=== PATIENT | female | born 1980 | race Caucasian/White ===

== ENCOUNTER 2019-11-12 09:59 | Emergency (ER) | payer BC, SELFPAY ==
--- NOTE | 2019-11-12 10:08 | ED.LOWEXIN ---
HPI - Extremity Injury (Lower) General Chief Complaint: Extremity Injury, Lower Stated Complaint: INJURED L KNEE Time Seen by Provider: 11/12/19 10:16 Source: patient and RN notes reviewed Mode of arrival: ambulatory Limitations: no limitations History of Present Illness HPI Narrative: 38-year-old female presents concern for left knee pain. Reports she recently started running and was dealing with porter splints. She reports 2 weeks ago she began having left knee pain. She reports some pain at rest, pain with weightbearing. Denies any intervention. She denies any injury, trauma. MD complaint: knee injury Related Data Home Medications Medication Instructions Recorded Confirmed Probiotic 11/12/19 multivitamin 11/12/19 Allergies Allergy/AdvReac Type Severity Reaction Status Date / Time No Known Allergies Allergy Verified 11/12/19 10:23 Review of Systems Review of Systems: Narrative: CONSTITUTIONAL: Denies malaise, chills, sweats, or fever. RESPIRATORY: Denies dyspnea. SKIN: Mild left anterior knee swelling MUSCULOSKELETAL: Reports left knee pain NEUROLOGIC: Denies numbness, weakness All systems reviewed & are unremarkable except as noted in HPI and below PMFSH Surgical History Surgical History (Updated 10/18/19 @ 08:37 by Hawa Bowman, [facility]) History of bilateral salpingectomy History of exploratory laparotomy Previous section Family History Family History (Updated 03/18/18 @ 15:48 by DOCTOR UNKNOWN) Mother Hypertension Patient's mother is in good health Social History Social History Smoking status: Never smoker Second hand tobacco smoke exposure: No Alcohol intake: current Comments At time of signature, agree with nursing past medical, surgical, social and family history. There is no relevant family history pertinent to the presenting complaint Exam Narrative: Exam Narrative: GENERAL: Well-appearing, well-nourished, and in no acute distress. HEAD: Normocephalic, atraumatic. EYES: PERRLA, conjunctivae clear NECK: Supple. CHEST: Speaks in full sentences. No respiratory distress. HEART: Regular rate and rhythm. Normal and equal peripheral pulses. EXTREMITIES: Left knee has normal strength and sensation, mild anterior/lateral edema, normal range of motion. 5/5 strength with knee flexion and extension. Normal sensation with sensitivity to light touch and pain. No open wounds, no skin tenting, no devitalized tissue or atrophy, no trophic changes, no ecchymosis, no obvious deformity, alignment normal, no point tenderness, nearby joints and structures intact. Distal pulses palpable and equal bilaterally, skin warm, dry, pink. Capillary refill less than 3 seconds. Anterior drawer test and Dolores test negative SKIN: Warm, dry, no rash. NEURO: Alert and oriented x3. PSYCH: Normal mood and affect Course Course Emergency Course: Patient is aware of diagnosis, understands and agrees to treatment plan. Anticipatory guidance given. Patient agrees to follow-up as directed and is aware of reasons to seek care at the emergency department. Portions of this record may have been created with voice recognition software Vital Signs Vital signs: Vital Signs Temperature 98.4 F 11/12/19 10:18 Pulse Rate 71 11/12/19 10:18 Respiratory Rate 16 11/12/19 10:18 Blood Pressure 120/90 11/12/19 10:18 Pulse Oximetry 99 11/12/19 10:18 Temperature 98.4 F 11/12/19 10:18 Pulse Rate 71 11/12/19 10:18 Respiratory Rate 16 11/12/19 10:18 Blood Pressure 120/90 11/12/19 10:18 Pulse Oximetry 99 11/12/19 10:18 Reviewed. MDM - Extremity Injury (Lower) MDM Narrative Medical decision making narrative: Patients pain is consistent with musculoskeletal etiology. No signs of neurological or vascular compromise on exam. Compartments and tissues are soft without signs of compartment syndrome. Pain is felt appropriate for further evaluation on an outpatient basis. Critical Ca
[2019-11-12 10:18] VITALS: BP 120/90; PULSE 71; RESP 16; TEMP 36.9; O2SAT 99
== END 2019-11-12 10:58 | disposition home or self-care (01) ==
PROVIDERS: Emergency Provider Nurse Practitioner; PCP Family Medicine
DX: M25.562 Pain in left knee (principal)
CPT/HCPCS: 99213; G0463

== ENCOUNTER 2020-02-28 16:21 | Outpatient (CLI) | payer BC, SELFPAY ==
--- NOTE | ~2020-02-28 | US_ITS ---
EXAMINATION: US pelvic complete w TV EXAM DATE: 02/28/2020 17:09 INDICATION: Irregular periods. Cyst removal, tubal ligation. TECHNIQUE: Pelvic transabdominal and transvaginal sonogram was performed. There are multiple graysca le and Doppler images available for interpretation. Comparison is made to prior examination from 10/19. FINDINGS: Uterus measures 10.2 x 4.0 x 4.6 cm, and is morphologically normal. Endometrial stripe me asures 4 mm, within normal limits. There is no free pelvic fluid. Right adnexa: The ovary measures 1.8 x 0.8 x 1.8 cm and is morphologically normal. Previously seen ri ght ovarian cystic lesion no longer identified. Ovarian vascular flow confirmed. Left adnexa: The ovary measures 8.1 x 6.3 x 8.9 cm, most of this size taken up by anechoic cystic reg ion with several septations measuring 7.2 x 5.2 x 5.9. Differential diagnosis includes hydrosalpinx, hemorrhagic cyst, cystic ovarian neoplasm. Ovarian vascular flow confirmed. IMPRESSION: Mildly complex left adnexal cystic region, differential diagnosis including hydrosalpinx, hemorrhagic cyst, cystic ovarian neoplasm. Consider 6 week follow-up pelvic sonogram. Reviewed, dictated and finalized at location B. IMPRESSION: Mildly complex left adnexal cystic region, differential diagnosis i ncluding hydrosalpinx, hemorrhagic cyst, cystic ovarian neoplasm. Consider 6 we ek follow-up pelvic sonogram.
== END 2020-02-28 16:22 | disposition home or self-care (01) ==
PROVIDERS: PCP Family Medicine; Visit Provider Obstetrics & Gynecology
DX: N92.6 Irregular menstruation, unspecified (principal)
CPT/HCPCS: 76830; 76856

== ENCOUNTER 2020-02-29 14:40 | Outpatient (CLI) | payer BC, SELFPAY ==
[2020-03-03 02:55] LABS: CA-125 13 U/mL (<35)
== END 2020-02-29 14:41 | disposition home or self-care (01) ==
PROVIDERS: PCP Family Medicine; Visit Provider Obstetrics & Gynecology
DX: N94.9 Unspecified condition associated with female genital organs and menstrual cycle (principal)
CPT/HCPCS: 36415; 86304

== ENCOUNTER 2020-05-04 15:50 | Outpatient (CLI) | payer BC, SELFPAY ==
--- NOTE | ~2020-05-04 | US_ITS ---
EXAMINATION: US pelvic complete w TV DATE: 05/04/2020 16:36 INDICATION: Pelvic and perineal pain Comparison:Ultrasound dated 02/28/2020 TECHNIQUE: Multiple transabdominal and endovaginal sonographic images of the pelvis performed. FINDINGS: The uterus measures 10.5 x 5.2 x 4 cm. The endometrial complex measures 6 mm. The right ovary measures 4 x 2.7 x 2.3 cm and the left ovary measures 6.8 x 5.8 x 4.6 cm. There is a complicated cyst of the left ovary measuring 3.3 x 2.8 x 3.1 cm. There is a second cyst measuring 4.1 x 2.4 x 3.2 cm. There is no free fluid in the pelvis. There are no abnormal masses seen on either side. IMPRESSION: 1. Left ovarian cysts, largest measuring 4.1 cm maximum dimension. Second smaller cyst contains low-l evel internal echoes and internal septations, likely hemorrhagic. Reviewed, dictated and finalized at location A. IMPRESSION: 1. Left ovarian cysts, largest measuring 4.1 cm maximum dimension. Second small er cyst contains low-level internal echoes and internal septations, likely hemo rrhagic.
== END 2020-05-04 15:51 | disposition home or self-care (01) ==
LOC: ANHIMG 15:53
PROVIDERS: PCP Family Medicine; Visit Provider Obstetrics & Gynecology
DX: R10.2 Pelvic and perineal pain (principal); N83.202 Unspecified ovarian cyst, left side
CPT/HCPCS: 76830; 76856

== ENCOUNTER 2020-05-13 08:08 | Outpatient (CLI) | payer BC, SELFPAY ==
--- NOTE | ~2020-05-13 | MM_ITS ---
EXAMINATION: MM screening geovanny BI w dionne HISTORY: Screening mammogram TECHNIQUE: Craniocaudal and mediolateral oblique 3-D tomosynthesis images were obtained and synthetic 2-D images were generated. Rotated lateral cc view of right breast. CAD analysis was submitted and i nterpreted. COMPARISON: No prior mammogram is available for comparison at this institution. BREAST PARENCHYMAL COMPOSITION: The breasts are heterogeneously dense, which may obscure small masses . FINDINGS: There is no evidence of suspicious mass, calcification, or architectural distortion to sugg est malignancy in either breast. There has been no suspicious interval change. IMPRESSION: 1. No mammographic evidence of malignancy. 2. Recommend routine screening mammography in one year. BI-RADS Category 1: Negative Reviewed, dictated and finalized at location A.
== END 2020-05-13 08:09 | disposition home or self-care (01) ==
LOC: ANHIMG 08:12
PROVIDERS: PCP Family Medicine; Visit Provider Obstetrics & Gynecology
DX: Z12.31 Encounter for screening mammogram for malignant neoplasm of breast (principal)
CPT/HCPCS: 77063; 77067

== ENCOUNTER 2020-06-27 10:19 | Outpatient (CLI) | payer BC, SELFPAY | END 2020-06-27 10:20 | disposition home or self-care (01) | LOC: ANHSURGERY 10:23 | PROVIDERS: PCP Family Medicine; Visit Provider Obstetrics & Gynecology Gynecology | DX: N92.0 Excessive and frequent menstruation with regular cycle (principal); N94.9 Unspecified condition associated with female genital organs and menstrual cycle | CPT/HCPCS: 36415; 86850; 86900; 86901 ==

== ENCOUNTER 2020-07-03 00:36 | Outpatient (CLI) | payer BC, SELFPAY ==
[2020-07-03 16:30] LABS: SARS-CoV-2 RNA PCR Negative
== END 2020-07-03 00:37 | disposition home or self-care (01) ==
LOC: ANHCOVIDDT 00:36
PROVIDERS: PCP Family Medicine; Visit Provider Obstetrics & Gynecology
DX: Z01.812 Encounter for preprocedural laboratory examination (principal); Z20.828 Contact with and (suspected) exposure to other viral communicable diseases
CPT/HCPCS: 87635; C9803; U0003

== ENCOUNTER 2020-07-05 09:27 | Inpatient (IN) | payer BC, SELFPAY ==
[2020-06-20 15:49] VITALS: BMI 29.2
--- NOTE | 2020-07-04 08:39 | WPDANESEPPF ---
Anes - Initial Pre Proc Eval Procedure: Operation Date: 07/05/20 07:30 Proposed Procedures p Total Abdominal Hysterectomy, Bilateral Salpingectomy, Possible Unilateral Oophorectomy, Possible Bilateral Oophorectomy - Ayden Mejía MD Date/Time: 07/04/20 08:39 Surgeon: Ayden Mejía MD Pre Op Diagnosis: Pelvic Pain/ Ovarian Cyst/ Menorrhagia Patient Data Age: 39 Gender: F Height: 1.6 m Weight: 75 kg Allergies Allergy/AdvReac Type Severity Reaction Status Date / Time No Known Allergies Allergy Verified 07/05/20 06:17 Home Medications Medication Instructions Recorded Confirmed Type Probiotic 40 mg BYMOUTH DAILY 11/12/19 07/05/20 History multivitamin 500 mg BYMOUTH DAILY 11/12/19 07/05/20 History Patient hx anesthesia problems: post op nausea/vomiting Family hx anesthesia problems: none PMFSH Past Medical History Medical History Anxiety Surgical History Surgical History History of bilateral salpingectomy History of exploratory laparotomy Previous section Family History Family History Mother Hypertension Patient's mother is in good health Social History Social History Smoking status: Former smoker Tobacco type: cigarettes Second hand tobacco smoke exposure: No Smoking end date: 09/08/12 Alcohol intake: current Substance use: never Living arrangements: with family Gender identity (if verbalized by the patient): Female Sexual Orientation (if Verbalized by the Patient): Straight or Heterosexual Spiritual care concerns: No Anes - Eval Final PreProcedure Day of Procedure 07/04/20 08:39 Patient weight: overweight Heart: regular rate and rhythm Lungs: clear to auscultation and normal air movement Airway: Mallampati scale class III Neurological: alert and oriented Last oral intake: >/= 8 hours ASA classification: II Emergent: no Anesthetic plan: proceed Anesthesia type and monitoring: general ETT and standard monitoring Informed Consent: The patient's anesthetic plan and its attendant risks and benefits were discussed with the patient/family/POA. Questions were solicited and answers provided to the satisfaction of the patient/family/POA.
[2020-07-05] VITALS (25 sets, daily range): BP systolic 102–125; BP diastolic 54–71; PULSE 68–97; RESP 12–20; TEMP 36.3–37.6; O2SAT 96–100
--- NOTE | 2020-07-05 05:45 | PM.IMHP ---
H&P: HPI History of Present Illness Date/Time: 07/05/20 05:45 Chief complaint: Pelvic Pain/ Ovarian Cyst/ Menorrhagia Narrative: Carla Thomas is a 39 year old female Para 1 with chronic intermittent pelvic pain for over three years and has dealt with it. She has a long history of pelvic adhesive disease. She states has had increased pelvic pain for two years. She gets frequent pelvic pain prior to two years but has gradually gotten worse. Recent ultraound in March showed a 7cm left complex adnexal cyst. She had a Ca125 which was normal at 13. She was started on control for irregular bleeding and to see if cyst would resolve. The follow up ultrasound did show the cyst decrease to 4cm. She continues to get the pelvic pain on the control pills. She has had metorrhagia with spotting for over 9 months. Had normal pap smear in February. Had endometrial biopsy since the spotting did not completely resolve with control pills and the endometrial biopsy showed an endometrial polyp. She was given option of laparoscopic removal of persistent cyst and hysteroscopic removal of polyp. She is aware that ovarian adnexal cyst and endometrial polyps can reoccur. She states that she has had years of pelvic pain and does not feel the best on control pills and desires definitive treatment of the pelvic pain with her history of extensive pelvic adhesive disease and treatment of the methorrhagia. History significant for PID, prior partial salpingectomy prior to IVF. She had laparotomy for large hydrosalpinx in 2018. She has a frozen embryo and she and her are adamant about not wanting to proceed with any future IVF attempts. She has satisfied parity and desires hysterectomy. She is aware that with her history of adhesions that she could still experience pelvic pain even after a hysterectomy. She is fine with this and does not want to deal with the spotting or do any type of hormonal options for the bleeding. She was informed of recommendation to keep ovaries if possible but one or both ovaries may need to be removed if they are involved in the dense adhesive disease. Discussed risk and effects of surgical menopause at this age. Risk of future surgery on ovaries 5-8% if they remain. Review of Systems Review of Systems: All systems reviewed & are unremarkable except as noted in HPI and below Constitutional: Constitutional: Reports no additional constitutional complaints Eyes: Eyes: Reports no additional eye complaints Cardiovascular: Cardiovascular: Denies chest pain and Denies dyspnea Respiratory: Respiratory: Reports no additional respiratory complaints, Denies dyspnea and Reports other Gastrointestinal: Gastrointestinal: Denies abdominal pain Genitourinary: Genitourinary: Reports no additional female genitourinary complaints, Reports as per HPI, Denies vaginal discharge, Denies vaginal dryness, Denies vaginal odor and Denies vaginal pruritus Psychiatric: Psychiatric: Reports no additional psychiatric complaints Endocrine: Endocrine: Reports no additional endocrine complaints Hematologic/Lymphatic: Hematologic/Lymphatic: Reports no additional hematologic/lymphatic complaints PMFSH Past Medical History Medical History Anxiety Surgical History Surgical History History of bilateral salpingectomy History of exploratory laparotomy Previous section Family History Family History Mother Hypertension Patient's mother is in good health Social History Social History Smoking status: Former smoker Tobacco type: cigarettes Second hand tobacco smoke exposure: No Smoking end date: 09/08/12 Alcohol intake: current Substance use: never Living arrangements: with family Gender identity (if verbalized
[2020-07-05] MEDS: ACETAMINOPHEN 500 MG TABLET 1000 MG PO (06:27)
[2020-07-05] MEDS: LACTATED RINGERS 1,000 ML 30 ML IV CONT ×2 (06:27→11:58)
[2020-07-05 06:44] LABS: Hematocrit 40.3 % (37.0-47.0); Hemoglobin 13.6 g/dL (12.0-15.0); Mean Corpuscular HGB Conc 33.7 g/dl (32-36); Mean Corpuscular Hemoglobin 31.4 pg (26-34); Mean Corpuscular Volume 93.1 fl (80-100); Mean Platelet Volume 10.4 fl (7.4-10.4); Platelet Count Result 281 k/mm3 (150-375); Red Blood Count 4.33 M/mm3 (4.2-5.4); Red Cell Distribution Width 12.9 % (11.5-14.5); White Blood Count 7.2 K/mm3 (4.5-10.0)
[2020-07-05] MEDS: SCOPOLAMINE 1.5 MG PATCH TRANSDERM (07:05)
--- NOTE | 2020-07-05 07:21 | WPDHPUPDATE1 ---
History and Physical Update Update Date/Time: 07/05/20 07:21 History and Physical has been reviewed, including an updated exam of the patient. There are NO changes in the patient's condition. Risks, benefits, and alternatives have been discussed and questions answered. Patient agrees to proceed with procedure.
[2020-07-05] MEDS: ceFAZolin 2 GM/D5W 50 ML 2 GM/50 ML BAG IVPB (07:34)
[2020-07-05] MEDS: ceFAZolin SODIUM 1 GM VIAL IV PUSH (11:40)
[2020-07-05] MEDS: METHYLENE BLUE 0.5% INJ 10 ML AMPULE 20 ML IRRIGATION (11:49)
--- NOTE | 2020-07-05 11:52 | PM.OP ---
Procedure Note - Brief Procedure Note - Brief Date of procedure: 07/05/20 Pre-op diagnosis: Pelvic Pain/ Ovarian Cyst/ Menorrhagia Endometrial polyp Post-op diagnosis: same (Severe pelvic adhesive disease) Procedure performed: 1. Total abdominal hysterectomy with left oophorectomy. 2. Extensive lysis of adhesions. 3. Cystoscopy. Anesthesia: GETA Surgeon: Ayden Mejía MD Estimated blood loss (mL): 150 IV fluids (mL): 2,000 Urine output (mL): 100 Drains: No Packing: No Pathology: yes (uterus and cervix and right fallopian tube) Complications: No immediate complications Condition: stable Disposition: PACU Findings: Extensive adhesions of small intestine and periintestinal fat to mid lower abdominal wall. The left ovary densely adhered to left pelvic wall and back of uterus and distal colon. Right ovary with hemorrhagic cyst which ruptured during procedure and hemostasis obtained with suture. Right ovary adhesed to colon. Bilateral efflux of urine from both ureter orifi on cystoscope. Bladder mucosa intact normal appearing.
[2020-07-05] MEDS: fentaNYL CITRATE INJ (*CRX) 100 MCG/2 ML VIAL 25 MCG IV PUSH ×8 (12:13→13:08)
[2020-07-05] MEDS: DEXTROSE 5%/LACTATED RINGERS 1,000 ML 125 ML IV CONT (14:29)
[2020-07-05] MEDS: KETOROLAC 30 MG/ML VIAL (*BKC) IV PUSH (14:29)
--- NOTE | 2020-07-05 14:51 | ADMGEN ---
This patient, Carla Thomas, was admitted to OB 2nd Floor Room 289-00. Patient/family oriented to hospital policies and general routines including ID bracelet, bed and alarms, visiting hours, pain management, procedures, bathroom and other care routines, personal items, smoking policy, room service/diet, and visiting hours. Information on how to activate the Rapid Response Team has been discussed. Patient/Family are encouraged to report perceived risks to care and to ask questions if they do not understand what they are told or what they should do.
[2020-07-05] MEDS: FENTANYL 600MCG/NS30MLPCA(*CRX 600 MCG/30 ML PCA.VIAL IV CONT (15:21)
--- NOTE | 2020-07-05 18:34 | PC.NURSE ---
Patient used 70 mcg total of Fentanyl MANAGER WOMEN during shift.
[2020-07-06 05:04] VITALS: BP 109/64; PULSE 83; RESP 17; TEMP 37.3
[2020-07-06 05:21] VITALS: RESP 18; O2SAT 98
[2020-07-06] MEDS: DEXTROSE 5%/LACTATED RINGERS 1,000 ML 125 ML IV CONT (05:56)
--- NOTE | 2020-07-06 08:05 | PM.PROC ---
Procedure Note - Detailed Date of procedure: 07/06/20 Pre-op diagnosis: Pelvic Pain/ Ovarian Cyst/ Menorrhagia 4. Endometrial polyp Post-op diagnosis: same (Severe pelvic adhesive disease) Procedure performed: 1. Total abdominal hysterectomy with left oophorectomy 2. Extensive lysis of adhesions 3. Cystoscopy Description of procedure: After informed consent was obtained patient was taken to the operating room. She was placed in supine position general endotracheal anesthesia was administered she was prepped and draped in sterile fashion attention was turned to the abdomen a Pfannenstiel skin incision was made along her prior Pfannenstiel scar. The subcutaneous tissue was dissected down with cautery and sharp dissection. The fascia which was scarred was incised in the midline. The fascia was extended with coates scissors. The scarred muscle bellies were dissected with cautery from the fascia laterally. There is dense scar tissue at the mid fascia anteriorly this was carefully dissected with Metzenbaum scissors. The peritoneum was entered. The area was palpated and there was noted to be scar tissue of the cheryl intestinal fat and the intestine superior to this the scar tissue was lysed with Metzenbaum scissors. Once the tissue was released from the anterior abdominal wall then the superior rectus tissue was further dissected from the underlying fascia for adequate visualization. Attention was turned to the inferior fascia which the muscle bellies were dissected from the inferior fascia using Metzenbaum scissors and cautery. Or cauterize for visualization. The intestines were then packed up out of the pelvis with labs. Prior to doing this there were extensive adhesions on the left sidewall and the left adnexa to the intestines that had to be lysed before placing the intestines up out of the pelvis. To this point which took approximately 90 minute which most of this was lysis of adhesions of the abdominal wall adhesions and the intestinal he has ends to the back of the uterus and both ovaries to get adequate visualization. Once adhesions were lysed to place intestine up in pelvis with laparotomy sponges then [place] abdominal retractor was placed. Mild adhesions of the right ovary were lysed from cheryl intestinal fat. The round ligament on the right was suture ligated with 0 vicry. The anterior leaf of the broad ligament was dissected and the vesicouterine peritoneum was dissected from the lower uterine segment. The posterior leaf of broad ligament incised and the uterine ovarian ligmanent was cauterized with ligasure. The hemorrhagic cyst on the right ovary ruptured when lilian was retracting ovary and clot removed and hemostasis at site with figure of eight sutures of 0 vicryl. Hemostasis noted. The uterine vessels were skeletonized. The ascending uterine vessels cauterized with ligature. The attention was turned to the left adnexa and more lysis of adhesions of ovary from side wall and pericolic adhesions. The was a cyst on the left ovary that was entered and clear fluid seen. Attention was turned to the left side of uterus which the anterior left uterus was attached to side wall dense adhesions. The adhesions were lysed. The round ligament was suture ligated and cauterized. The anterior leaf of broad ligament dissected anteriorly and the adhesion on the anterior uterus excised and the vesicouterine peritoneum was dissected from the lower uterine segment and the cervix. The posterior leaf of broad ligament entered and the uterine vessels skeletonized. The ascending uterine arteries cauterized with ligature. The bladder further dissected to below the cervix area and the uterine arteries on the left and cardinal ligaments cauterized with ligature .The uterine vessels on right and cardinal ligaments cauterized with ligature. The curved z clamp was used to clamp the vaginalcervical on both sides. Monique scissors were used to cut the cervix from the vagina. The pedicles were
[2020-07-06 08:10] VITALS: BP 95/58; PULSE 93; RESP 16; TEMP 36.9; O2SAT 95
[2020-07-06 09:00] VITALS: RESP 18; O2SAT 95
--- NOTE | 2020-07-06 09:00 | PC.NURSE ---
PT introductions made and plan of care discussed per post op cushion installer surgery, pain management, daily care activities. PT verbalized understanding of such care.
[2020-07-06 09:21] VITALS: PULSE 93; RESP 16; O2SAT 95
[2020-07-06] MEDS: KETOROLAC 30 MG/ML VIAL (*BKC) IV PUSH (09:21)
--- NOTE | 2020-07-06 11:07 | WPDANESPN ---
Anes - Prog Note Post-Op Date/Time: 07/06/20 11:07 Cardiovascular status: normal Respiratory status: normal Airway patency: baseline Mental status: baseline Post-Op hydration status: normal Vital Signs: Last Vital Signs Temp 98.4 F 07/06/20 08:10 Pulse 93 07/06/20 08:10 Resp 16 07/06/20 08:10 BP 95/58 L 07/06/20 08:10 Pulse Ox 95 07/06/20 08:10 Pain Score (VAS): 09/17 I/O: Intake & Output 07/05/20 07/06/20 07/06/20 23:59 07:59 15:59 Intake Total 1300 463.5 Output Total 250 1850 Balance 1050 -1386.5 Laboratory Tests 07/05/20 06:26 Patient Feedback: Patient satisfied with anesthetic care.
[2020-07-06] MEDS: HYDROcodone/acetaminophen (*CRX) 5-325 MG TABLET 1 TAB PO ×3 (11:12→18:48)
--- NOTE | 2020-07-06 12:58 | PM.GYNPNOP ---
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 Will start oral analgesia. DC Mendez. Start clear liquids and advance diet. Encourage ambulation. Postoperative Procedures: Procedures Operation Date: 07/05/20 07:30 Actual Procedures Side Surgeon p Total Abdominal Hysterectomy, Left Oophorectomy, Cystoscopy Ayden Mejía MD Time Spent With Patient Time: Total time spent is greater than 50% in coordination of care (as documented) at patient's floor/unit and/or counseling patient: Time with patient: less than 15 minutes CHAINSTITCH SEWING MACHINE OPERATOR- PN:Subj Post-Op Subjective Date/time seen: 07/06/20 0745 She states her pain is controlled. No flatus. Did ok sitting up in bed. No nausea. No leg pain or chest pain. Exam Const: General: comfortable and no acute distress Orientation/consciousness: oriented to person, oriented to place and oriented to time Resp: Auscultation: clear to auscultation bilaterally Cardio: Rate: regular rate Rhythm: regular rhythm GI: Other: + BS, incision intact no drainage, mild tenderness lower abdomen Neuro: General: oriented to person, oriented to place and oriented to time Extrem: General: no calf tenderness Psych: Mental Status: mental status grossly normal CHAINSTITCH SEWING MACHINE OPERATOR - PN: Obj Data Vital Signs Vital Signs: Vital Signs - 24 hr 07/05/20 13:10 07/05/20 13:25 07/05/20 13:40 Temperature 97.4 F L Pulse Rate 76 97 82 Respiratory Rate 14 12 14 Blood Pressure 108/64 112/58 L 110/60 Pulse Oximetry 96 96 96 07/05/20 13:50 07/05/20 14:00 07/05/20 14:15 Temperature 99 F Pulse Rate 72 79 72 Respiratory Rate 18 16 16 Blood Pressure 110/67 103/61 103/58 L Pulse Oximetry 97 97 97 07/05/20 14:30 07/05/20 15:00 07/05/20 15:21 Temperature 99.6 F Pulse Rate 74 69 Respiratory Rate 16 16 16 Blood Pressure 109/63 105/64 Pulse Oximetry 97 97 98 07/05/20 16:00 07/05/20 16:21 07/05/20 17:00 Temperature Pulse Rate 76 76 Respiratory Rate 16 Blood Pressure 106/58 L 108/64 Pulse Oximetry 97 97 97 07/05/20 17:21 07/05/20 18:21 07/05/20 18:30 Temperature 99.1 F Pulse Rate 68 Respiratory Rate 16 18 17 Blood Pressure 102/54 L Pulse Oximetry 97 98 07/05/20 19:21 07/05/20 21:21 07/05/20 23:10 Temperature 99.0 F Pulse Rate 83 Respiratory Rate 16 17 16 Blood Pressure 103/61 Pulse Oximetry 98 97 07/05/20 23:21 07/06/20 05:04 07/06/20 05:21 Temperature 99.2 F Pulse Rate 83 Respiratory Rate 18 17 18 Blood Pressure 109/64 Pulse Oximetry 98 98 07/06/20 08:10 07/06/20 09:00 07/06/20 09:21 Temperature 98.4 F Pulse Rate 93 93 Respiratory Rate 16 18 16 Blood Pressure 95/58 L Pulse Oximetry 95 95 95 Intake/Output Intake/Output: Intake & Output 07/03/20 07/04/20 07/05/20 07/06/20 23:59 23:59 23:59 23:59 Intake Total 2100 714.0 Output Total 425 2300 Balance 1675 -1586.0 Meds/Results Medications: Active Medications Generic Name Dose Route Start Last Admin Trade Name Freq PRN Reason Stop Dose Admin Hydrocodone Bitart/Acetaminophen 1 tab 07/06/20 11:02 07/06/20 11:12 Hydrocodone/Acetaminophen (*Crx) 5-325 Mg Tablet PO 1 tab Q4H PRN Administration Pain Rated 4-6 Hydrocodone Bitart/Acetaminophen 1 tab 07/06/20 11:02 Hydrocodone/Acetaminophen (*Crx) 10-325 Mg Tablet PO Q3H PRN Pain Rated 7-10 Dextrose/Lactated Ringer's 1,000 mls @ 125 mls/hr 07/05/20 13:43 07/06/20 07:15 Dextrose 5%/Lactated Ringers IV CONT Not Given .Q8H BRICE Ketorolac Tromethamine 30 mg 07/05/20 13:43 07/06/20 09:21 Ketorolac 30 Mg/Ml Vial (*Bkc) IV PUSH 07/10/20 13:44 30 mg Q6H PRN Administration Pain Rated 4-6 Naloxone HCl 0.1 mg 07/05/20 13:43 Naloxone Hcl 0.4 Mg/Ml Vial IV PUSH Q2M PRN Respiratory rate le
[2020-07-06] MEDS: IBUPROFEN 600 MG TABLET (15:14)
[2020-07-06 18:50] VITALS: BP 96/58; PULSE 67; RESP 18; TEMP 36.6
[2020-07-07] MEDS: IBUPROFEN 600 MG TABLET PO ×2 (01:30→10:19)
[2020-07-07] MEDS: HYDROcodone/acetaminophen (*CRX) 5-325 MG TABLET 1 TAB PO ×3 (01:30→10:20)
[2020-07-07 08:05] VITALS: BP 93/50; PULSE 69; RESP 16; TEMP 37.3; O2SAT 100
--- NOTE | 2020-07-07 10:20 | PM.GYNPNOP ---
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 Discharge home today. Discharge precautions discussed. Postoperative Procedures: Procedures Operation Date: 07/05/20 07:30 Actual Procedures Side Surgeon p Total Abdominal Hysterectomy, Left Oophorectomy, Cystoscopy Ayden Mejía MD Time Spent With Patient Time: Total time spent is greater than 50% in coordination of care (as documented) at patient's floor/unit and/or counseling patient: Time with patient: less than 15 minutes JUKEBOX COIN COLLECTOR- PN:Subj Post-Op Subjective Date/time seen: 07/07/20 10:20 She states she feels good. Adequate pain control. Positive flatus. Ambulating without problems. No leg pain. Exam Const: General: comfortable and no acute distress Orientation/consciousness: oriented to person, oriented to place and oriented to time Resp: Auscultation: clear to auscultation bilaterally Cardio: Rate: regular rate Rhythm: regular rhythm GI: GI Palp: Yes Soft to palpation Auscultation: normal bowel sounds Other: mild tenderness no guarding or rebound Incision intact no drainage or erythema or induration Neuro: General: oriented to person, oriented to place and oriented to time Extrem: General: no calf tenderness Psych: Mental Status: mental status grossly normal JUKEBOX COIN COLLECTOR - PN: Obj Data Vital Signs Vital Signs: Vital Signs - 24 hr 07/06/20 18:50 07/07/20 08:05 Temperature 97.9 F 99.2 F Pulse Rate 67 69 Respiratory Rate 18 16 Blood Pressure 96/58 L 93/50 L Pulse Oximetry 100 Intake/Output Intake/Output: Intake & Output 07/04/20 07/05/20 07/06/20 07/07/20 23:59 23:59 23:59 23:59 Intake Total 2100 1714.0 Output Total 425 2600 Balance 1675 -886.0 Meds/Results Medications: Active Medications Generic Name Dose Route Start Last Admin Trade Name Freq PRN Reason Stop Dose Admin Hydrocodone Bitart/Acetaminophen 1 tab 07/06/20 11:02 07/07/20 05:04 Hydrocodone/Acetaminophen (*Crx) 5-325 Mg Tablet PO 1 tab Q4H PRN Administration Pain Rated 4-6 Hydrocodone Bitart/Acetaminophen 1 tab 07/06/20 11:02 Hydrocodone/Acetaminophen (*Crx) 10-325 Mg Tablet PO Q3H PRN Pain Rated 7-10 Ibuprofen 600 mg 07/06/20 14:31 07/07/20 01:30 Ibuprofen 600 Mg Tablet PO 600 mg Q6H PRN Administration Cramping Ketorolac Tromethamine 30 mg 07/05/20 13:43 07/06/20 09:21 Ketorolac 30 Mg/Ml Vial (*Bkc) IV PUSH 07/10/20 13:44 30 mg Q6H PRN Administration Pain Rated 4-6 Naloxone HCl 0.1 mg 07/05/20 13:43 Naloxone Hcl 0.4 Mg/Ml Vial IV PUSH Q2M PRN Respiratory rate less than 10 Ondansetron HCl 4 mg 07/05/20 13:43 Ondansetron Inj 4 Mg/2 Ml Vial IV PUSH Q6H PRN Nausea Labs CBC & Chem 7: 07/05/20 06:26
--- NOTE | 2020-07-07 10:28 | PM.DS ---
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) Status: Acute (2) Pelvic pain: Code(s): R10.2 - Pelvic and perineal pain Status: Acute (3) Ovarian cyst: Code(s): N83.209 - Unspecified ovarian cyst, unspecified side Status: Acute (4) Abnormal uterine bleeding: Code(s): N93.9 - Abnormal uterine and vaginal bleeding, unspecified Status: Acute DS: Summary Time Spent with Patient Time attestation: Total time spent providing and/or coordinating discharge services: Exam Const: General: comfortable and no acute distress Eyes: General: appearance normal, both eyes and all related structures Resp: Effort & Inspection: normal respiratory effort Auscultation: clear to auscultation bilaterally Cardio: Rate: regular rate Rhythm: regular rhythm GI: Other: +BS soft mild tenderness, incision intact no erythema or induration Extrem: General: normal to inspection Other: no calf tenderness or erythema bilaterally Psych: Appearance: grossly normal DS: Data Data Completed and Pending Completed studies during hospitalization: Pending at discharge 07/05/20 10:37 Surgical [PTH] Routine Discharge Plan Discharge Attending physician on discharge: Ayden Mejía Discharging Clinician: Ayden Mejía Anticipated Discharge Date/Time: 07/07/20 10:23 Patient Disposition: Home, Self-Care Activity: may shower, no straining, may drive after 2 weeks, pelvic rest and other - see discharge instructions Diet: regular Wound Care Instructions: incision open to air Discharge Instructions: No straining, lifting or bending. Take Miralax daily until not taking the stronger pain medication. May take over the counter Ibuprofen/Motrin 600mg every six hours or 800mg every eight hours as needed. Call for temperature >100.4, vaginal bleeding like a period, leg pain or redness or swelling, persistent nausea or vomiting. Keep follow up appointment. Stand Alone Forms: General Discharge Instructions Follow-up/Referrals: Ayden Mejía MD [Physician] - Keep Reg. Scheduled Appt. Discharge Medications: New hydrocodone-acetaminophen 5-325 mg Tablet 1 tab PO Q4H PRN (Reason: Pain Rated 4-6) Qty: 25 RF: 0 Continued Probiotic tablet 40 mg BYMOUTH DAILY RF: 0 multivitamin tablet 500 mg BYMOUTH DAILY RF: 0 Date of admission: 07/05/20 09:27 Primary Care Provider: Adilene Matias Admitting Provider: Ayden Mejía Attending physician on admission: Ayden Mejía
== END 2020-07-07 11:10 | disposition home or self-care (01) | DRG 743 ==
LOC: ANHOB2 14:13
PROVIDERS: Admitting Provider Obstetrics & Gynecology; PCP Family Medicine; Visit Provider Obstetrics & Gynecology
PROC: 0UT94ZZ Resection of Uterus, Percutaneous Endoscopic Approach (ICD-10-PCS; principal; 2020-07-05 07:30)
DX: N73.6 Female pelvic peritoneal adhesions (postinfective) (principal); N93.9 Abnormal uterine and vaginal bleeding, unspecified; N83.202 Unspecified ovarian cyst, left side; N83.201 Unspecified ovarian cyst, right side; R10.2 Pelvic and perineal pain; F41.9 Anxiety disorder, unspecified; Z87.891 Personal history of nicotine dependence
CPT/HCPCS: 36415; 85027; 86850; 86900; 86901; 87635; 88307; A9270; C9803; J0131; J0690; J1100; J1170; J1885; J2250; J2405; J2704; J2710; J3010; J7030; J7120; J7121; Q9968; U0003

== ENCOUNTER 2021-06-07 17:06 | Outpatient (CLI) | payer BC, SELFPAY ==
--- NOTE | ~2021-06-07 | MM_ITS ---
EXAMINATION: MM screening [facility] BI w dionne HISTORY: Screening TECHNIQUE: Craniocaudal and mediolateral oblique 3-D tomosynthesis images were obtained and synthetic 2-D images were generated. CAD analysis was submitted and interpreted. COMPARISON: 05/13/2020 BREAST PARENCHYMAL COMPOSITION: The breasts are heterogeneously dense, which may obscure small masses . FINDINGS: There is no evidence of suspicious mass, calcification, or architectural distortion to sugg est malignancy in either breast. There has been no suspicious interval change. IMPRESSION: 1. No mammographic evidence of malignancy. 2. Recommend routine screening mammography in one year. BI-RADS Category 1: Negative Reviewed, dictated and finalized at location A.
== END 2021-06-07 17:07 | disposition home or self-care (01) ==
LOC: ANHIMG 17:07
PROVIDERS: PCP Family Medicine; Visit Provider Obstetrics & Gynecology
DX: Z12.31 Encounter for screening mammogram for malignant neoplasm of breast (principal)
CPT/HCPCS: 77063; 77067

== ENCOUNTER 2022-08-15 08:22 | Outpatient (CLI) | payer BC, SELFPAY ==
--- NOTE | ~2022-08-15 | MM_ITS ---
EXAMINATION: MM screening [facility] BI w dionne HISTORY: Screening mammogram TECHNIQUE: Craniocaudal and mediolateral oblique 3-D tomosynthesis images were obtained and synthetic 2-D images were generated. CAD analysis was submitted and interpreted. COMPARISON: 06/07/2021, 05/13/2020 BREAST PARENCHYMAL COMPOSITION: The breasts are heterogeneously dense, which may obscure small masses . FINDINGS: No suspicious mass, calcification, or architectural distortion are identified in either abimael ast to suggest malignancy. There has been no suspicious interval change. IMPRESSION: 1. No mammographic evidence of malignancy. 2. Recommend routine screening mammography in one year. BI-RADS Category 1: Negative Reviewed, dictated and finalized at location A. ET PRESSMAN
== END 2022-08-15 08:23 | disposition home or self-care (01) ==
LOC: ANHIMG 08:23
PROVIDERS: PCP Family Medicine; Visit Provider Obstetrics & Gynecology
DX: Z12.31 Encounter for screening mammogram for malignant neoplasm of breast (principal)
CPT/HCPCS: 77063; 77067

== ENCOUNTER 2023-08-25 14:12 | Outpatient (CLI) | payer BC, SELFPAY ==
--- NOTE | ~2023-08-25 | MM_ITS ---
EXAMINATION: MM screening [facility] BI w dionne HISTORY: Screening mammogram TECHNIQUE: Craniocaudal and mediolateral oblique 3-D tomosynthesis images were obtained and synthetic 2-D images were generated. Bilateral rotated lateral CC views. CAD analysis was submitted and interp reted. COMPARISON: 08/15/2022, 06/07/2021, 05/13/2020 bilateral screening mammogram examinations BREAST PARENCHYMAL COMPOSITION: The breasts are heterogeneously dense, which may obscure small masses . FINDINGS: There is no evidence of suspicious mass, calcification, or architectural distortion to sugg est malignancy in either breast. There has been no suspicious interval change. IMPRESSION: 1. No mammographic evidence of malignancy. 2. Recommend routine screening mammography in one year. BI-RADS Category 1: Negative Reviewed, dictated and finalized at location A. DES[employer]
== END 2023-08-25 14:13 | disposition home or self-care (01) ==
LOC: ANHIMG 14:13
PROVIDERS: PCP Family Medicine; Visit Provider Obstetrics & Gynecology
DX: Z12.31 Encounter for screening mammogram for malignant neoplasm of breast (principal)
CPT/HCPCS: 77063; 77067

== ENCOUNTER 2024-09-27 08:31 | Outpatient (CLI) | payer BC, SELFPAY ==
--- NOTE | ~2024-09-27 | MM_ITS ---
EXAMINATION: MM screening [facility] BI w dionne HISTORY: Screening TECHNIQUE: Craniocaudal and mediolateral oblique 3-D tomosynthesis images were obtained and synthetic 2-D images were generated. CAD analysis was submitted and interpreted. COMPARISON: Comparison to multiple prior studies sequentially, with oldest reviewed study dated 01/2020. BREAST PARENCHYMAL COMPOSITION: Dense: The breasts are heterogeneously dense, which may obscure small masses FINDINGS: There is no evidence of suspicious mass, calcification, or architectural distortion to sugg est malignancy in either breast. There has been no suspicious interval change. IMPRESSION: 1. No mammographic evidence of malignancy. 2. Recommend routine screening mammography in one year. BI-RADS Category 1: Negative Reviewed, dictated and finalized at location A. [employer]
--- OUTSIDE RECORDS SUMMARY | 2024-09-30 11:57 | XMS_ITS | Referral Summary ---
Author Organization [employer] Address [address] [place] [address] Care Team Providers Care Planer Feeder Name Role Phone Unavailable Primary Care Provider Unavailabl e Source Comments [facility] [employer],non-owned Affiliates and Associated Physician Practices is amultiple site organization consisting of ambulatory clinics and hospital sitesin [place], [place], [place] and [place]. This disclosure is being madepursuant to the Care Everywhere program and may not contain all information available regarding this patient. Last updated 18.[employer] Allergies No known active allergies Medications * Be aware that medications may not be up to date on this document. Alwaysverify current medications with the patient. Medication Sig Dispensed Refills Start Date End Date Status Multiple Vitamin (MULTIVITAMINS PO) Active CRANBERRY PO Active Active Problems Patient Care Coordination No te Formatting of this note migh t be different from the original. Cervical Length Hx of 7cm cyst Was twin Preg--no pole seen- only GS @8wk scan Problem Noted Date Diagnosed Date In vitro fertilization 11/09/2013 Supervision of other high-risk 014 Overview (07/16/2015): Social History Tobacco Use Types Packs/Day Years Used Date Smoking Tobacco: Former Smokeless Tobacco: Never Sex and Gender Information Value Date Recorded Sex Assigned at Not on file Gender Identity Not on file Sexual Orientation Not on file Last Filed Vital Signs Vital Sign Reading Time Taken Comments Blood Pressure 118/76 10/24/2019 9:59 AM ENDOCRINOLOGY NURSE Pulse 93 10/24/2019 9:59 AM ENDOCRINOLOGY NURSE Temperature 38.1 ??C (100.5 ??F) 10/24/2019 9:[address] Respiratory Rate 16 10/24/2019 9:59 AM ENDOCRINOLOGY NURSE Oxygen Saturation 98% 10/24/2019 9:59 AM ENDOCRINOLOGY NURSE Inhaled Oxygen Concentration - - Weight 72.6 kg (160 lb) 10/24/2019 9:59 AM ENDOCRINOLOGY NURSE Height 160 cm (5' 3 ) 10/24/2019 9:59 AM ENDOCRINOLOGY NURSE Body Mass Index 28.34 10/24/2019 9:59 AM ENDOCRINOLOGY NURSE Plan of Treatment Not on file
--- OUTSIDE RECORDS SUMMARY | 2024-09-30 11:57 | XMS_ITS | Patient Health Summary ---
Author Organization [facility] Address [address] [place] [address] Care Team Providers Care Education Supervisor Name Role Phone Unavailable Primary Care Provider Unavailabl e Note from [facility],non-owned Affiliates and Associated Physician Practices is amultiple site organization consisting of ambulatory clinics and hospital sitesin [place], [place], [place] and [place]. This disclosure is being madepursuant to the Care Everywhere program and may not contain all information available regarding this patient. Last updated 18.[employer] [facility] Allergies No known active allergies Medications * Be aware that medications may not be up to date on this document. Alwaysverify current medications with the patient. * Multiple Vitamin (MULTIVITAMINS PO) * CRANBERRY PO Active Problems Problem Noted Date Diagnosed Date In vitro fertilization 11/09/2013 Supervision of other high-risk 014 Social History Tobacco Use Types Packs/Day Years Used Date Smoking Tobacco: Former Smokeless Tobacco: Never Sex and Gender Information Value Date Recorded Sex Assigned at Not on file Gender Identity Not on file Sexual Orientation Not on file Last Filed Vital Signs Vital Sign Reading Time Taken Comments Blood Pressure 118/76 10/24/2019 9:59 AM TEXTILE CONVERTER Pulse 93 10/24/2019 9:59 AM TEXTILE CONVERTER Temperature 38.1 ??C (100.5 ??F) 10/24/2019 9:[address] Respiratory Rate 16 10/24/2019 9:59 AM TEXTILE CONVERTER Oxygen Saturation 98% 10/24/2019 9:59 AM TEXTILE CONVERTER Inhaled Oxygen Concentration - - Weight 72.6 kg (160 lb) 10/24/2019 9:59 AM TEXTILE CONVERTER Height 160 cm (5' 3 ) 10/24/2019 9:59 AM TEXTILE CONVERTER Body Mass Index 28.34 10/24/2019 9:59 AM TEXTILE CONVERTER Procedures * STREP A SCREEN - POINT OF CARE (AMB) STL(Performed 10/24/2019) Performed for Influenza A * INFLUENZA A+B - POINT OF CARE (AMB)(Performed 10/24/2019) Performed for Influenza A * CULTURE URINE(Performed 02/10/2014) * CULTURE URINE(Performed 02/04/2014) * SONOGRAM - COMPLETE(Performed 2013) Performed for In vitro fertilization, Supervision of other high-risk (HCC) * SONOGRAM - COMPLETE(Performed 12/06/2013) Performed for In vitro fertilization, Supervision of other high-risk (HCC) * SONOGRAM - COMPLETE(Performed 11/15/2013) Performed for In vitro fertilization Results * STREP A SCREEN - POINT OF CARE (AMB) STL (10/24/2019) Strep A Rapid POCT Negative Negative Strep A Internal Control Present Lot # [id number] Expiration Date 02/05/2021 Throat ENTIRE THROAT (SURFACE REGION OF NECK) / Unknown 10/24/2019 Camron Dorantes PHP MYSQL DEVELOPER-COLOR TELEVISION CONSOLE MONITOR LAB - POINT OF CARE ORDERABLES * (ABNORMAL) INFLUENZA A+B - POINT OF CARE (AMB) (10/24/2019) Influenza A Antigen Rapid Positive(A) Negative Influenza B Antigen Rapid Negative Negative Influenza Internal Control positive NEGATIVE - POSITIVE Influenza Lot Number [id number] Influenza Expiration Date 07/21/2021 Other NASOPHARYNGEAL SWAB / Unknown 10/24/2019 Camron Dorantes PHP MYSQL DEVELOPER-COLOR TELEVISION CONSOLE MONITOR LAB - POINT OF CARE ORDERABLES * CULTURE URINE (02/10/2014 10:34 AM CDT) Only the most recent of2 resultswithin the time period is included. Culture Urine Less than 10,000 CFU/ML of Normal Urogenital/ Skin Starla [facility] Comment:. Urine specimen (specimen) URINE SPECIMEN OBTAINED BY CLEAN CATCH PROCEDURE / Unknown 02/10/2014 10:34 AM CDT 02/10/2014 2:46 PM CDT Narrative [facility] - 02/12/2014 11:05 AM CDT KevinSpecimen#[id number] Kevin Loc/Rm/Bed: OB NSTRCR// CLN CATCH U Historical Provider MD LAB - MICROBIOLOG Y ORDERABLES Performing Organization Address City/State/[facility] Co de Phone Number [address] [phone] * SONOGRAM - COMPLETE (2013 5:19 PM CDT) Only the most recent of3 resultswithin the time period is included. Anatomical Region Laterality Modality Other 2013 5:19 PM CDT Narrative 2013 7:44 PM CDT ?[facility] ?PHONE: ??FAX: ? Pat. Name: ?CARLA THOMAS. No: ?[id number] Study Date: ?? 2013 ??5:19pm , Age: ? 1980, 32 LMP: ?Unknown GA by 1st: ?31w1d GA by US: ? 33w4d GA Selected: ??31w1d (From Known E) TIEN: ?02/21/2014 Referring MD: Ayden Mejía MD Warehouse Delivery Driver: ??Alessandra Awad RDMS Hist/Ind: ? Large for Dates ?IVF ?Large Ovarian Cyst MEASUREMENTS & AGE ? GROWTH EVALUATION Measurement ??GA ? Range ? Srce %for GA Ratios ----- ---- ------- BPD ??8.3 cm 33w4d (45e9k-24e5r) Hadl BPD 85% FL/BPD 0.74 (0.71 - 0.87) HC ??30.3 cm 33w5d (84m3t-80q6m) Hadl HC ??88% FL/AC ??0.19 (0.20 - 0.24* AC ??31.6 cm 35w4d (96z3b-51a9y) Hadl AC ??>95 HC/AC ??0.96 (0.96 - 1.15* FL ?? 6.1 cm 31w6d (22f7c-48v8f) Hadl FL ??60% CI ? 0.79 (0.70 - 0.86) HL ?? 5.7 cm 33w2d (93o1k-90p5j) Antonio HL ??85% GA for sonogram 33w4d (74t8v-81t0g) ?? Weight Estimate: based on (HL,BPD,HC,AC,FL) Avg ? Weight: 2359 gm (5950-0318) Hadlo ? : 5lbs, 3oz ? Normal: 1656 gm (1199- 2320) Brenn ? Wt% ? >90 for 31w1d Heart Rate: 148 bpm Amniotic Fluid Index: 17.7cm (08.8-23.9) Q1: 4.5cm ??Q2: 5.6cm ??Q3: 2.3cm ??Q4: 5.3cm ?? CLINICAL SUMMARY Study Number: ??3 A cook fetus is identified in cephalic presentation. ??The placenta is posterior. ?? The left ovarian cyst has a mean diameter of 3.3cm. ??No major malformations are seen. The patient was advised that ultrasound does not allow detection of all structural or chromosomal abnormalities. ?? IMPRESSION: ?? Cook gestation, 31w1d Biometry is consistent with an LGA growth pattern. The amniotic fluid volume remains within normal limits. The right adnexa was thoroughly examined without detection of a cyst. The left ovarian cyst is similar in size and appearance compared to prior exams. RECOMMEND: ?? Repeat growth assessment in 4 weeks. Thank you for allowing us the opportunity to care for your patient. Mirela Gonsalez MD <Electronic Signature> ??2013 07:44pm Mirela Gonsalez MD [facility] ORDERABLES
--- OUTSIDE RECORDS SUMMARY | 2024-09-30 11:57 | XMS_ITS | Clinical Summary ---
Author Organization [employer] Address [address] [place] [address] Care Team Providers Care Braided Rug Maker Name Role Phone Unavailable Primary Care Provider Unavailabl e Source Comments [facility] [employer] [facility],non-owned Affiliates and Associated Physician Practices is amultiple site organization consisting of ambulatory clinics and hospital sitesin [place], [place], [place] and [place]. This disclosure is being madepursuant to the Care Everywhere program and may not contain all information available regarding this patient. Last updated 18.[employer] Allergies No known active allergies Medications * [...] Supervision of other high-risk 014 Overview (07/16/2015): Family History Medical History Relation Name Comments Hypertension Mother Leukemia Sister Relation Name Status Comments Mother Sister Social History Tobacco Use Types Packs/Day Years Used Date Smoking Tobacco: Former Smokeless Tobacco: Never Sex and Gender Information Value Date Recorded Sex Assigned at Not on file Gender Identity Not on file Sexual Orientation Not on file Last Filed Vital Signs Vital Sign Reading Time Taken Comments Blood Pressure 118/76 10/24/2019 9:59 AM CURATOR OF PHOTOGRAPHY AND PRINTS Pulse 93 10/24/2019 9:59 AM CURATOR OF PHOTOGRAPHY AND PRINTS Temperature 38.1 ??C (100.5 ??F) 10/24/2019 9:[address] Respiratory Rate 16 10/24/2019 9:59 AM CURATOR OF PHOTOGRAPHY AND PRINTS Oxygen Saturation 98% 10/24/2019 9:59 AM CURATOR OF PHOTOGRAPHY AND PRINTS Inhaled Oxygen Concentration - - Weight 72.6 kg (160 lb) 10/24/2019 9:59 AM CURATOR OF PHOTOGRAPHY AND PRINTS Height 160 cm (5' 3 ) 10/24/2019 9:59 AM CURATOR OF PHOTOGRAPHY AND PRINTS Body Mass Index 28.34 10/24/2019 9:59 AM CURATOR OF PHOTOGRAPHY AND PRINTS Plan of Treatment Health Maintenance Due Date Last Done Comments LIPID TESTING 1980 MAMMOGRAM 1980 PAP SMEAR 1980 HIV SCREENING 12/20/1994 HEPATITIS C SCREENING 12/16/1997 DTAP/TDAP/TD VACCINES (1 - Tdap) 12/20/1998 HEPATITIS B VACCINE (1 of 3 - 19+ 3-dose series) 12/20/1998 COVID-19 VACCINE ( - 2023-2 5 season) 2024 INFLUENZA VACCINE (#1) 2024 DEPRESSION SCREENING 09/08/2024 ZOSTER VACCINE (1 of 2) 12/20/2029 HIB VACCINE Aged Out No longer eligi ble based on patient's age to complete this topic HPV VACCINE Aged Out No longer eligi ble based on patient's age to complete this topic MENINGOCOCCAL (Group B) VACCINE Aged Out No longer eligible based on patient's age to complete this topic MENINGOCOCCAL VACCINE Aged Out No wilfredo katie eligible based on patient's age to complete this topic PNEUMOCOCCAL VACCINE Aged Out No long er eligible based on patient's age to complete this topic
--- OUTSIDE RECORDS SUMMARY | 2024-09-30 11:57 | XMS_ITS | Continuity of Care Document ---
Author Organization [facility] Address [address] [place] [address] Phone Care Team Providers Care Project Design Engineer Name Role Phone Unavailable Unavailable Unavailable Advance Directives Directive Yes / No Effective Date File Name No Information Encounters Encounter Description Practice Location Reason(s) For Visit Diagnoses Date Provider Providers Copied on Encounter [facility], [address] [facility], [place], [place], [id number], [place] tel:[phone] [facility] No Information No Information Referring Provider: CASSIE TELLEZ, [address] [place] [address],[place], [address]. tel:[phone] Family History Family Member Type Diagnosis Age At Onset No Information Payers Payer name Insurance type Covered constitution party ID Nancy garibay(s) ASRAI POS [id number] CI [id number] Social History Type Description Quantity Date Captured Comments Sex Female Smoking Status No Information Chief Complaint And Reason For Visit No Information History Of Present Illness Encounter Date Complaint History Of Prese nt Illness No Information Instructions Date Instruction Additional Infor mation No Information Assessments Type Assessment Date No Information
--- OUTSIDE RECORDS SUMMARY | 2024-09-30 11:57 | XMS_ITS | Clinical Summary ---
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
== END 2024-09-27 08:32 | disposition home or self-care (01) ==
LOC: ANHIMG 08:33
PROVIDERS: PCP Family Medicine; Visit Provider Obstetrics & Gynecology
DX: Z12.31 Encounter for screening mammogram for malignant neoplasm of breast (principal)
CPT/HCPCS: 77063; 77067

== ENCOUNTER 2025-01-14 18:04 | Emergency (ER) | payer BC, SELFPAY ==
[2025-01-14 18:14] VITALS: BP 137/74; PULSE 66; RESP 16; TEMP 36.6; O2SAT 100
--- NOTE | 2025-01-14 18:24 | ED_ITS ---
HPI - Ear Problem General Chief complaint: Ear Stated complaint: EARS Time Seen by Provider: 01/14/25 18:17 Source: patient, RN notes reviewed and old records reviewed Mode of arrival: ambulatory Limitations: no limitations History of Present Illness HPI Narrative: 44 year old female [facility] with complaints of going to [place] the end part of December and had sinus infection when she returned for which she was treated with Augmentin which she completed last week. Patient reports that she continues to have bilateral ear pain especially when she swallows. Patient reports that her ears feel blocked and her hearing is , pain is greatest to left ear. Patient states that she has taken some Tylenol and Ibuprofen for her discomfort. MD Complaint: ear pain and decreased hearing Location: bilateral Severity: moderate Discharge from ear: Reports no Treatment prior to arrival: oral analgesic (Tylenol and Ibuprofen) and other (patient completed antibiotic last week ) Related Data Home Medications ?Medication ?Instructions ?Recorded ?Confirmed ?Last Taken ?Type Probiotic 40 mg BYMOUTH DAILY 11/12/19 01/14/25 3 Days Ago History ~07/02/20 multivitamin 500 mg BYMOUTH DAILY 11/12/19 01/14/25 3 Days Ago History ~07/02/20 cetirizine 10 mg tablet (24Hour 10 mg PO DAILY 01/14/25 01/14/25 Unknown History Allergy) Allergies Allergy/AdvReac Type Severity Reaction Status Date / Time No Known Allergies Allergy Verified 01/14/25 18:11 Review of Systems Review of Systems: CONSTITUTIONAL: Denies malaise, chills, sweats, or fever. EYES: Denies visual changes, redness, or discharge. ENT: Reports rhinorrhea, congestion, no sinus pain, bilateral otalgia and no sore throat. CARDIOVASCULAR: Denies chest pain, palpitations, or edema. RESPIRATORY: Reports no acute cough.? Denies dyspnea. GASTROINTESTINAL: Denies abdominal pain, nausea, vomiting, diarrhea SKIN: Denies rash or itching. MUSCULOSKELETAL: Denies myalgia. NEUROLOGIC: Denies headache. All systems reviewed & are unremarkable except as noted in HPI and below PMFSH Past Medical History Medical History Anxiety Surgical History Surgical History H/O ovarian cystectomy Status post left oophorectomy H/O: hysterectomy History of bilateral salpingectomy Previous section Family History Family History Mother Hypertension Patient's mother is in good health Social History Social History (Updated 01/14/25 @ 19:43 by Aline Rodriguez NP) Smoking packs per day: 0.5 Smoking cigarettes per day: 10.0 Years smoked: 6 Smoking pack-years: 3.00 Smoking status: Former smoker Tobacco type: cigarettes Second hand tobacco smoke exposure: No Smoking end date: 09/08/12 Alcohol intake: current Alcohol use details: seldom; socially Substance use: never Substance use type: does not use Lack of Transportation: No Lack of Food: Never True Current Housing: I Have Housing Concerned About Future Housing: No Difficulty Paying Gas/Electric Bills: No Difficulty Paying for Meds: No Currently Unemployed: No Education: High School Diploma/GED Difficulty w/ Childcare or Family Care: No Living arrangements: with family Gender identity (if verbalized by the patient): Female Sexual Orientation (if Verbalized by the Patient): Straight or Heterosexual Spiritual care concerns: No Comments At time of signature, agree with nursing past medical, surgical, social and family history. There is no relevant family history pertinent to the presenting complaint Exam Narrative: GENERAL: Well-appearing, well-nourished, and in no acute distress. HEAD: Normocephalic EYES: PERRLA, conjunctivae clear ENT: Nares clear, turbinates edematous and erythematous, clear discharge. Mucous membranes moist. Left TM red, Right TM pearly chavarria with dull light reflex; no tragal tenderness. Oropharynx erythematous without lesions. Tonsils not enlarged and without exudate, no drooling, no hoarseness, no trismus, uvula midline. post nasal drainage NECK: Supple. No lymphadenopathy CHEST: Clear to auscultation, breath sounds equal. No wheezing, rhonchi, rales, or stridor. No respiratory distress, speaks in full sentences. no acute cough SAO2 100% on room air HEART: Regular rate and rhythm. No murmur heard. SKIN: Warm, dry, no rash. NEURO: Alert and oriented x3. PSYCH: Normal mood and affect Course Course Emergency Course: Patient is aware of diagnosis, understands and agrees to treatment plan.? Anticipatory guidance given.? Patient agrees to follow-up as directed and is aware of reasons to seek care at the emergency department. Portions of this record may have been created with voice recognition software Level of Care: Express Care Visit Vital Signs Vital signs: Vital Signs Temperature 36.6 C 01/14/25 18:14 Pulse Rate 66 01/14/25 18:14 Respiratory Rate 16 01/14/25 18:14 Blood Pressure 137/74 01/14/25 18:14 Pulse Oximetry 100 01/14/25 18:14 Temperature 36.6 C 01/14/25 18:14 Pulse Rate 66 01/14/25 18:14 Respiratory Rate 16 01/14/25 18:14 Blood Pressure 137/74 01/14/25 18:14 Pulse Oximetry 100 01/14/25 18:14 Reviewed Medical Decision Making Differential Diagnosis Differential Diagnosis: otitis media, URI, sinusitis, viral infection,otalgia Medical Records Medical records reviewed: Yes I reviewed the external patient's medical records. Vital Signs Vital Signs: Vital Signs Temperature 36.6 C 01/14/25 18:14 Pulse Rate 66 01/14/25 18:14 Respiratory Rate 16 01/14/25 18:14 Blood Pressure 137/74 01/14/25 18:14 Pulse Oximetry 100 01/14/25 18:14 Temperature 36.6 C 01/14/25 18:14 Pulse Rate 66 01/14/25 18:14 Respiratory Rate 16 01/14/25 18:14 Blood Pressure 137/74 01/14/25 18:14 Pulse Oximetry 100 01/14/25 18:14 reviewed Critical Care Time Critical Care Time Critical Care Time: No Discharge Plan Discharge Clinical Impression: Acute left otitis media Patient Disposition: Home Condition: Stable Instructions: Antibiotic Form, Ear Infection (GEN) Additional Instructions: Increase fluids especially juices and water Zgeg-cqe-deorzxy cough and cold medicine of your choice for your symptoms Zyrtec or Claritin or Samantha daily Tylenol or ibuprofen for any fever pain heat to the face 20-30 minutes 4-6 times a day for pain Salt water gargles, throat lozenges or throat sprays as desired Antibiotic as directed--finished the medication If your symptoms persist, change or worsen significantly before you can contact your personal physician then please, without delay, go to the emergency department for further evaluation. Follow-up with PCP in 7-10 days or sooner if needed Follow up with PCP soon in regards to your blood pressure which is elevated above threshold for referral. Blood pressure above 120/80 may indicate pre- hypertension. 137/74 Patient Language: Samoan Prescriptions: New cefdinir 300 mg capsule 300 mg PO Q12H Qty: 20 0RF No Action Probiotic tablet 40 mg BYMOUTH DAILY multivitamin tablet 500 mg BYMOUTH DAILY cetirizine [24Hour Allergy] 10 mg tablet 10 mg PO DAILY Follow-up/Referrals: Adilene Matias MD [Primary Care Provider] - Time of Disposition: 18:35 Quality Joceline Coma Scale Eyes: Open Verbal: Oriented and Alert Motor: Follows Commands Joceline Coma Total Score: 15
== END 2025-01-14 18:41 | disposition home or self-care (01) ==
PROVIDERS: Emergency Provider Registered Nurse; PCP Family Medicine
DX: H66.92 Otitis media, unspecified, left ear (principal); Z87.891 Personal history of nicotine dependence
CPT/HCPCS: 99213; G0463

== ENCOUNTER 2025-05-02 01:18 | Day surgery (SDC) | payer BC, SELFPAY ==
--- OUTSIDE RECORDS SUMMARY | 2013-09-26 18:00 | XMS_ITS | Continuity of Care Document ---
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 No Information No Information Referring Provider: CASSIE TELLEZ, [address] [place] [address],[place], [address]. tel:[phone] Family History Family Member Type Diagnosis Age At Onset No Information Payers Payer name Insurance type Covered republican ID Nancy garibay(s) SARAI POS [id number] Social History Type Description Quantity Date Captured Comments Sex Female Smoking Status No Information Chief Complaint And Reason For Visit No Information History Of Present Illness Encounter Date Complaint History Of Prese nt Illness No Information Instructions Date Instruction Additional Infor mation No Information Assessments Type Assessment Date No Information
[2025-04-19 10:53] VITALS: BMI 32.0
--- OUTSIDE RECORDS SUMMARY | 2025-05-02 01:20 | XMS_ITS | Clinical Summary ---
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 Gender Identity Not on file Sexual Orientation Not on file Plan of Treatment Health Maintenance Due Date Last Done Comments DTAP/TDAP/TD VACCINES (1 - Tdap) 12/20/1998 HEPATITIS B VACCINES (1 of 3 - 19+ 3-dose series) 12/07 HPV/Cotest (21-29) 12/20/2000 HPV VACCINES (1 - 3-dose SCDM series) 12/20/2006 CERVICAL CANCER SCREENING 12/20/2009 HPV/Cotest (30-65) 12/20/2009 PAP SMEAR 12/20/2009 BREAST CANCER SCREENING 2019 COLORECTAL SCREENING 12/20/2024 Colorectal Cancer Screening 12/20/2024 FIT-DNA Q 3 years 12/20/2024 FIT/FOBT Q 1 year 12/20/2024 Flex Sig/CT Colonography Q 5 years 12/20/2024 INFLUENZA VACCINE (#1) 2025 Insurance [employer] BLUE ACCESS CHOICE
--- OUTSIDE RECORDS SUMMARY | 2025-05-02 01:20 | XMS_ITS | Clinical Summary ---
Author Organization [facility] Address [address] [place] [address] Care Team Providers Care Power System Dispatcher Name Role Phone Unavailable Primary Care Provider Unavailabl e Source Comments [facility],non-owned Affiliates and Associated Physician Practices is amultiple site organization consisting of ambulatory clinics and hospital sitesin [place], [place], [place] and [place]. This disclosure is being madepursuant to the Care Everywhere program and may not contain all information available regarding this patient. Last updated 18.[employer] Allergies No known active allergies Medications * Be aware that medications may not be up to date on this document. Alwaysverify current medications with the patient. 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 Gender Identity Not on file Sexual Orientation Not on file Last Filed Vital Signs Vital Sign Reading Time Taken Comments Blood Pressure 118/76 10/24/2019 9:59 AM STOCKROOM INVENTORY CLERK Pulse 93 10/24/2019 9:59 AM STOCKROOM INVENTORY CLERK Temperature 38.1 C (100.5 F) 10/24/2019 9:59 AM STOCKROOM INVENTORY CLERK Respiratory Rate 16 10/24/2019 9:59 AM STOCKROOM INVENTORY CLERK Oxygen Saturation 98% 10/24/2019 9:59 AM STOCKROOM INVENTORY CLERK Inhaled Oxygen Concentration - - Weight 72.6 kg (160 lb) 10/24/2019 9:59 AM STOCKROOM INVENTORY CLERK Height 160 cm (5' 3) 10/24/2019 9:59 AM STOCKROOM INVENTORY CLERK Body Mass Index 28.34 10/24/2019 9:59 AM STOCKROOM INVENTORY CLERK Plan of Treatment Health Maintenance Due Date Last Done Comments COLOGUARD (AGES 45-75) - COL ON CA SCREENING 1979 COLON MONITORING 1979 COLONOSCOPY - COLON CA SCREENING 1979 CT COLONOGRAPHY - COLON CA SCREENING 1979 Colorectal Cancer Screening 1979 FIT - COLON CA SCREENING 1979 FLEX SIG - COLON CA SCREENING 1979 LIPID TESTING 1979 MAMMOGRAM 1979 HIV SCREENING 12/20/1994 HEPATITIS C SCREENING 12/16/1997 DTAP/TDAP/TD VACCINES (1 - Tdap) 12/20/1998 HEPATITIS B VACCINE (1 of 3 - 19+ 3-dose series) 12/20/1998 HPV VACCINE (1 - 3-dose SCDM series) 12/20/2006 COVID-19 VACCINE (1 - 2023-2 5 season) 2024 DEPRESSION SCREENING 09/08/2024 INFLUENZA VACCINE (#1) 2025 ZOSTER VACCINE (1 of 2) 12/20/2029 HIB VACCINE Aged Out No longer eligi ble based on patient's age to complete this topic MENINGOCOCCAL (Group B) VACC INE SHARED DECISION-MAKING Aged Out No longer eligibl e based on patient's age to complete this topic MENINGOCOCCAL GROUPS A/C/Y/W VACCINE Aged Out No longer eligible b ased on patient's age to complete this topic PNEUMOCOCCAL VACCINE Aged Out No long er eligible based on patient's age to complete this [place] [address] [place] [id number] [facility] [place] [address] [place] [id number]
--- NOTE | 2025-05-02 06:50 | WPDANESEPPF ---
Anes - Initial Pre Proc Eval Procedure: Operation Date: 05/02/25 08:30 Proposed Procedures p Screening Colonoscopy - Elbert Zazueta DO Date/Time: 05/02/25 06:50 Surgeon: Elbert Zazueta DO Pre Op Diagnosis: Neoplasm screening Patient Data Age: 44 Gender: F Height: 1.6 m Weight: 82 kg Allergies Allergy/AdvReac Type Severity Reaction Status Date / Time No Known Allergies Allergy Verified 05/02/25 07:20 Home Medications ?Medication ?Instructions ?Recorded ?Confirmed ?Type Probiotic 40 mg BYMOUTH DAILY 11/12/19 05/02/25 History multivitamin 500 mg BYMOUTH DAILY 11/12/19 05/02/25 History cetirizine 10 mg tablet (24Hour 10 mg PO DAILY 01/14/25 05/02/25 History Allergy) famotidine 20 mg tablet (Acid 20 mg PO DAILY 04/19/25 05/02/25 History Controller) Patient hx anesthesia problems: none Family hx anesthesia problems: none Results Review: All pre-operative results and documents have been reviewed as part of the pre-operative evaluation. [facility] Past Medical History Medical History (Updated 05/02/25 @ 07:24 by Elbert Zazueta DO) GERD (gastroesophageal reflux disease) Anxiety Surgical History Surgical History H/O ovarian cystectomy Status post left oophorectomy H/O: hysterectomy History of bilateral salpingectomy Previous section Family History Family History Mother Hypertension Patient's mother is in good health Social History Social History Smoking packs per day: 0.5 Smoking cigarettes per day: 10.0 Years smoked: 6 Smoking pack-years: 3.00 Smoking status: Former smoker (~13 years ago) Tobacco type: cigarettes Second hand tobacco smoke exposure: No Smoking end date: 09/08/12 Alcohol intake: current Alcohol use details: seldom; socially Substance use: never Substance use type: does not use Lack of Transportation: No Lack of Food: Never True Current Housing: I Have Housing Concerned About Future Housing: No Difficulty Paying Gas/Electric Bills: No Difficulty Paying for Meds: No Currently Unemployed: No Education: High School Diploma/GED Difficulty w/ Childcare or Family Care: No Living arrangements: with family Gender identity (if verbalized by the patient): Female Sexual Orientation (if Verbalized by the Patient): Straight or Heterosexual Spiritual care concerns: No Anes - Eval Final PreProcedure Day of Procedure 05/02/25 06:50 Patient weight: obese Heart: regular rate and rhythm Lungs: clear to auscultation Airway: Mallampati scale class II Neurological: alert and oriented Last oral intake: >/= 8 hours ASA classification: II Emergent: no Anesthetic plan: proceed Anesthesia type and monitoring: general GIVS and standard monitoring Results Review: All pre-operative results and documents have been reviewed as part of the pre-operative evaluation. Informed Consent: The patient's anesthetic plan and its attendant risks and benefits were discussed with the patient/family/POA. Questions were solicited and answers provided to the satisfaction of the patient/family/POA.
[2025-05-02 07:17] VITALS: BP 124/83; PULSE 75; RESP 16; TEMP 36.5; O2SAT 98; BMI 32.1
--- NOTE | 2025-05-02 07:23 | PM.IMHP ---
H&P: HPI History of Present Illness Date/Time: 05/02/25 07:23 Chief Complaint: Screening for colorectal cancer Narrative: this is a 44-year-old woman who presents for colonoscopy. This is her 1st colonoscopy. She denies any hematochezia or melena. She denies any family history of colon cancer. Review of Systems Review of Systems: All systems reviewed & are unremarkable except as noted in HPI and below Constitutional: Constitutional: Denies chills, Denies fever(s), Denies headache(s) and Denies weight loss Eyes: Eyes: Denies change in vision ENT: Denies dizziness, Denies headache(s), Denies neck mass and Denies throat swelling Cardiovascular: Cardiovascular: Denies chest pain, Denies lightheadedness and Denies dyspnea Respiratory: Respiratory: Denies cough, Denies dyspnea and Denies wheezing Gastrointestinal: Gastrointestinal: Denies abdominal pain, Denies change in bowel habits, Denies nausea and Denies vomiting Genitourinary: Genitourinary: Denies hematuria and Denies dysuria Musculoskeletal: Musculoskeletal: Reports as per HPI Integumentary/Breasts: Skin/Breast: Reports as per HPI Neurologic: Denies dizziness and Denies headache(s) Allergic/Immunologic: Allergic/Immunologic: Denies throat swelling and Denies wheezing [facility] Past Medical History Medical History (Updated 05/02/25 @ 07:24 by Elbetr Zazueta DO) GERD (gastroesophageal reflux disease) Anxiety Surgical History Surgical History H/O ovarian cystectomy Status post left oophorectomy H/O: hysterectomy History of bilateral salpingectomy Previous section Family History Family History Mother Hypertension Patient's mother is in good health Social History Social History Smoking packs per day: 0.5 Smoking cigarettes per day: 10.0 Years smoked: 6 Smoking pack-years: 3.00 Smoking status: Former smoker (~13 years ago) Tobacco type: cigarettes Second hand tobacco smoke exposure: No Smoking end date: 09/08/12 Alcohol intake: current Alcohol use details: seldom; socially Substance use: never Substance use type: does not use Lack of Transportation: No Lack of Food: Never True Current Housing: I Have Housing Concerned About Future Housing: No Difficulty Paying Gas/Electric Bills: No Difficulty Paying for Meds: No Currently Unemployed: No Education: High School Diploma/GED Difficulty w/ Childcare or Family Care: No Living arrangements: with family Gender identity (if verbalized by the patient): Female Sexual Orientation (if Verbalized by the Patient): Straight or Heterosexual Spiritual care concerns: No Meds Home Medications and Allergies Home Medications ?Medication ?Instructions ?Recorded ?Confirmed ?Type Probiotic 40 mg BYMOUTH DAILY 11/12/19 05/02/25 History multivitamin 500 mg BYMOUTH DAILY 11/12/19 05/02/25 History cetirizine 10 mg tablet (24Hour 10 mg PO DAILY 01/14/25 05/02/25 History Allergy) famotidine 20 mg tablet (Acid 20 mg PO DAILY 04/19/25 05/02/25 History Controller) Allergies Allergy/AdvReac Type Severity Reaction Status Date / Time No Known Allergies Allergy Verified 05/02/25 07:20 Exam Const: General: no acute distress and alert Orientation/consciousness: patient oriented x3 HENMT: Head: normocephalic and atraumatic Ears: hearing grossly normal bilaterally Face/Nose/Sinus: Normal nares present Mouth: Yes Normal oral and palatal mucosa present Eyes: Periorbital: periorbital findings normal Sclera: sclerae normal EOM: EOMs intact bilaterally Neck: Neck: normal visual inspection, no lymphadenopathy and trachea midline Chest: Chest palpation & inspection: normal inspection of the chest Resp: Effort & Inspection: normal respiratory effort Auscultation: clear to auscultation bilaterally Cardio: Jugular venous distension: no JVD Rate: regular rate Rhythm: regular rhythm Heart sounds: S1 normal heart sound present and S2 normal heart sound present Peripheral pulses: Peripheral pulses 2+ throughout GI: Inspection: normal to inspection GI Palp: Yes Soft to palpation, No Tenderness to palpation present (GI), No Guarding due to palpation present (GI) and No Rebound tenderness present Percussion: Yes normal to percussion Auscultation: normal bowel sounds : General: Yes no CVA tenderness Back/Spine/Pelvis: Back: no CVA tenderness Neuro: General: patient oriented x3, no focal motor deficits and CN's II-XI intact bilaterally Cognition (Neuro): normal cognition Speech: normal speech Motor exam (neuro): 5/5 motor strength present throughout Extrem: General: capillary refill normal and no clubbing, cyanosis or edema Assessment and Plan Assessment and plan (1) Screening for colon cancer: Code(s): Z12.11 - Encounter for screening for malignant neoplasm of colon Status: Acute Assessment and Plan: I have recommended colonoscopy. I have discussed the procedure, risks, benefits, and alternatives. Questions were answered. Patient is agreeable to proceed.
[2025-05-02] MEDS: LACTATED RINGERS 1,000 ML 150 ML IV CONT (07:36)
[2025-05-02 09:04] VITALS: BP 100/63; PULSE 75; RESP 20; O2SAT 99
[2025-05-02 09:14] VITALS: BP 123/70; PULSE 65; RESP 18; O2SAT 100
[2025-05-02 09:24] VITALS: BP 113/82; PULSE 64; RESP 20; O2SAT 100
== END 2025-05-02 09:28 | disposition home or self-care (01) ==
PROVIDERS: PCP Family Medicine; Visit Provider Surgery
PROC: 0DJD8ZZ Inspection of Lower Intestinal Tract, Via Natural or Artificial Opening Endoscopic (ICD-10-PCS; CPT 45378; principal; 2025-05-02 08:30)
DX: Z12.11 Encounter for screening for malignant neoplasm of colon (principal); K21.9 Gastro-esophageal reflux disease without esophagitis; F41.9 Anxiety disorder, unspecified; E66.9 Obesity, unspecified; Z68.32 Body mass index [BMI] 32.0-32.9, adult; Z98.890 Other specified postprocedural states; Z87.891 Personal history of nicotine dependence
CPT/HCPCS: 45378; J2704; J7120